=== PATIENT | female | born 1985 | race Caucasian/White ===

== ENCOUNTER 2024-08-22 21:02 | Emergency (ER) | payer MEDICAID, SELFPAY ==
[2024-08-22 21:04] VITALS: BMI 38.7
[2024-08-22 21:25] VITALS: BP 135/99; PULSE 115; RESP 18; TEMP 36.9; O2SAT 98
--- NOTE | 2024-08-22 21:59 | EDNOTE_ITS ---
ED Female Urogenital RME/HPI General Chief complaint: Abdominal Pain Stated complaint: ABD/BACK PAIN X3DAYS Time Seen by Provider: 08/22/24 21:51 Arrival date/time: 08/22/24 21:02 39F with no significant PMH presents to ED with several days of pelvic/back pain and dysuria. Patient denies N/V and vaginal bleeding. Limitations: no limitations Related Data Home Medications ?Medication ?Instructions ?Recorded ?Confirmed vit no.95-ferrous 1 tab PO QDAY 02/22/1802/10 fumarate 28 mg-folic acid 800 mcg tablet () Previous Rx's ?Medication ?Instructions ?Recorded acetaminophen 650 mg 650 mg PO Q8H PRN pain #60 t abs 02/22/18 tablet,extended release (8 Hour Pain Reliever) ibuprofen 800 mg tablet 800 mg PO TID PRN pain #30 t abs 02/10/22 meclizine 25 mg tablet 25 mg PO TID PRN dizziness # 20 tabs 02/10/22 diphenhydramine HCl 25 mg capsule 25 mg PO Q8H PRN all ergic symptoms 02/07/24 (Benadryl) #30 caps cefuroxime axetil 500 mg tablet 500 mg PO BID 7 days # 14 tabs 08/22/24 naproxen 500 mg tablet 500 mg PO BID PRN pain #30 t abs 08/22/24 Allergies Allergy/AdvReac Type Severity Reaction Status Date / Time acetaminophen (From Vicodin) Allergy Verified 08/22/24 21:07 hydrocodone (From Vicodin) Allergy Verified 08/22/24 21:07 latex Allergy Hives Verified 08/22/24 21:07 morphine Allergy Verified 08/22/24 21:07 Review of Systems Review of Systems Systems Reviewed: All systems reviewed, normal except as documented Constitutional Constitutional: Reports system reviewed and no additional complaints, except as documented, Denies fever(s) and Denies headache(s) ENT Ears, Nose, Mouth, and Throat: Denies disequilibrium and Denies headache(s) Cardiovascular Cardiovascular: Reports system reviewed and no additional complaints, except as documented, Denies chest pain and Denies dyspnea Respiratory Respiratory: Reports system reviewed and no additional complaints, except as documented, Denies cough and Denies dyspnea Gastrointestinal Gastrointestinal: Reports system reviewed and no additional complaints, except as documented, Denies abdominal pain, Denies nausea and Denies vomiting Genitourinary Genitourinary: Reports as per HPI, Reports dysuria and Reports pelvic pain Neurologic Neurologic: Reports system reviewed and no additional complaints, except as documented, Denies confusion, Denies disequilibrium and Denies headache(s) Psychiatric Psychiatric: Denies confusion Past Medical History Past Medical History NEUROLOGIC: Negative Neurological Disorders CARDIAC: Negative Cardiac Disorders or Congestive Heart Failure RESPIRATORY: Negative Chronic Obstructive Pulmonary Disease (COPD) GENITOURINARY: Negative Renal Disease ENDOCRINE: Negative Diabetes Mellitus Type 1 or Diabetes Mellitus Type 2 Social History SMOKING STATUS: Never smoker ED Exam General Limitations: Present no limitations General appearance: Present alert and in no apparent distress Head Head exam: Present atraumatic Eye Eye exam: Present normal appearance, PERRL and EOMI ENT ENT exam: Present normal exam, normal oropharynx and mucous membranes moist Neck Neck exam: Present normal inspection, full ROM and trachea midline Chest Chest inspection: Present normal inspection and symmetric chest wall rise Respiratory Respiratory exam: Present normal lung sounds bilaterally Cardiovascular Cardiovascular exam: Present regular rate, normal rhythm and normal heart sounds Abdominal Exam Abdominal exam: Present soft and normal bowel sounds Extremities Exam Extremities exam: Present normal inspection and full ROM Back Exam Back exam: Present normal inspection and full ROM Neurological Exam Neurological exam: Present alert, oriented X3 and CN II-XII intact Psychiatric Psychiatric exam: Present normal affect and normal mood Skin Skin exam: Present warm, dry, intact and normal color Course Quality Measures none Orders Category Date Time Status Drug Screen,Urine Stat Lab 08/22/24 22:36 Completed HCG Qualitative,Urine Stat Lab 08/22/24 22:36 Completed Urinalysis, C/S if Indicated Stat Lab 08/22/24 22:36 Completed Urine Culture Stat Lab 08/22/24 22:36 Received Naproxen [Naprosyn] Med 08/22/24 21:51 Discontinued 500 mg PO X1 ONE cefTRIAXone [Rocephin] 1,000 mg Med 08/22/24 23:31 Discontinued Lidocaine 1% 20 ml [Xylocaine 1% 20 ML] 2.1 ml IM X1 Vital Signs Vital signs: Vital Signs Temperature 98.4 F 08/22/24 21:25 Pulse Rate 115 H 08/22/24 21:25 Respiratory Rate 18 08/22/24 21:25 Blood Pressure 135/99 H 08/22/24 21:25 Pulse Oximetry (%) 98 08/22/24 21:25 Oxygen Delivery Method Room Air 08/22/24 21:25 O2 at 98% on RA and WNLs Urogenital - Female MDM Narrative MDM Narrative:: 39F with no significant PMH presents to ED with several days of pelvic/back pain and dysuria. Patient denies N/V and vaginal bleeding. Physical exam reveals no flank/ab tenderness. Patient is afebrile, calm, and alert. UA suggests UTI. Patient data External records reviewed:: [facility] previous records Clinical information provided by:: patient Social determinants that could affect healthcare access:: none Patient has the following chronic illnesses:: none How is presenting disease/condition affected by chronic disease/condition?: no chronic disease Evaluation data The following diagnostics were reviewed and interpreted by me:: lab results Lab and/or radiology exams considered but not ordered:: ordered Interpretation Summary: above Medications / Prescriptions Medications or Prescriptions considered but not ordered:: ordered Medication administrations:: Medication Administration History Discontinued Medications Ceftriaxone Sodium 1,000 mg/ (Lidocaine HCl 2.1 ml) 0 mg IM X1 ONE Stop: 08/22/24 23:32 Last Admin: 08/22/24 23:52 Dose: 1,000 mg Documented By: Naproxen (Naproxen 250 Mg Tablet) 500 mg PO X1 ONE Stop: 08/22/24 21:52 Last Admin: 08/22/24 22:11 Dose: 500 mg Documented By: above Consultations Consultation(s) initiated? (list below): No Diagnosis Urogenital Female Differential Diagnosis: urinary tract infection, bacterial vaginosis, trichomoniasis, cervicitis, ovarian cyst, vaginitis, ruptured ovarian cyst, cyst of Bartholin's gland, cystitis, dysmenorrhea and other (appy, torsion) Most likely diagnosis given after review of the tests above:: UTI Admission Indicated Admission indicated?: not indicated Admission Request Was there a request for admission?: No Disposition Plan Disposition Plan: Discharge Discharge Attestation Discharge Attestation: The patient and all family members were given an opportunity to ask questions and understood the discharge instructions. Discharge instructions specifically effects, indications for sooner follow up or return to the emergency department, and the expected course of current diagnosis. Patient condition: Stable Discharge Plan Plan Patient Disposition: HOME (Self Care) Disposition Comment: Stable Prescriptions/Referrals Prescriptions/Med Rec: New cefuroxime axetil 500 mg tablet 500 mg PO BID 7 Days Qty: 14 0RF naproxen 500 mg tablet 500 mg PO BID PRN (Reason: pain) Qty: 30 0RF No Action PNV cmb#95-ferrous fumarate-FA [] 28 mg iron- 800 mcg Tablet 1 tab PO QDAY acetaminophen [8 Hour Pain Reliever] 650 mg tablet extended release 650 mg PO Q8H MDD 4000 PRN (Reason: pain) Qty: 60 0RF ibuprofen 800 mg tablet 800 mg PO TID PRN (Reason: pain) Qty: 30 0RF meclizine 25 mg tablet 25 mg PO TID PRN (Reason: dizziness) Qty: 20 0RF diphenhydramine HCl [Benadryl] 25 mg capsule 25 mg PO Q8H PRN (Reason: allergic symptoms) Qty: 30 0RF Referrals: No Primary/Family,Physician [Primary Care Provider] - In 1 week Problem List Clinical Impression: UTI (urinary tract infection) Patient/Caregiver Discharge Instructions Education Materials: ED CYSTITIS Female Adult Additional Instructions: Please follow-up with PCP within 24-48 hours and return immediately if symptoms worsen. Print Language: Romanian Stand Alone Forms: Patient Portal Info Letter PA/RAG [employer] Supervising Physician ALLIE/SAIDA Supervising Physician: Dr. Anaya
[2024-08-22] MEDS: NAPROXEN 250 MG TABLET 500 MG PO (22:11)
[2024-08-22 22:45] LABS: Collection Type, Urine Clean Catch
[2024-08-22 23:18] LABS: Bilirubin,Urine Negative (Negative); Blood,Urine 1+ (Negative); Clarity,Urine Turbid (Clear/Hazy); Color,Urine Yellow (Lt Yel-Yel); Glucose, Urine Negative (Negative); Ketones,Urine Negative (Negative); Leukocyte Esterase,Urine Positive (Negative); Nitrite,Urine Negative (Negative); Protein,Urine 1+ (Neg - Trace); RBC,Urine 38 /hpf (0-3); Specific Gravity,Urine 1.017 (1.001-1.035); Squamous Epithelial Cell,Urine < 1 /hpf (0-5); Urobilinogen,Urine Negative mg/dL (0.0-1.0); WBC,Urine 533 /hpf (0-5)
[2024-08-22 23:19] LABS: Culture Indicated,Urine Yes; HCG Qualitative,Urine Negative
[2024-08-22 23:25] LABS: Amphetamine/Methamp Scrn,U Negative (Negative); Barbiturate Screen,Urine Negative (Negative); Benzodiazepines Screen,Urine Negative (Negative); Benzoylecgonine Screen, Ur Negative (Negative); Fentanyl Screen,Urine Negative (Negative); Opiate Screen,Urine Negative (Negative); THC Screen,Urine Negative (Negative)
[2024-08-22] MEDS: cefTRIAXone 1,000 MG, LIDOCAINE 1% 20 ML 2.1 ML IM (23:52)
== END 2024-08-23 00:32 | disposition home or self-care (01) ==
PROVIDERS: Physician Assistant; Emergency Provider Emergency Medicine
DX: N39.0 Urinary tract infection, site not specified (principal)
CPT/HCPCS: 80307; 81001; 81025; 87077; 87086; 87186; 96372; 99283; J0696; J3490; A9270